=== PATIENT | female | born 1990 | race Caucasian/White ===

== ENCOUNTER 2017-02-06 13:01 | Emergency (ER) | payer OTHER, SELFPAY ==
[~2017-02-06 13:01] MED LIST: Lidocaine 1% 20 ML MDV ONE
[2017-02-06 13:41] LABS: Pregnancy Test - Urine (BHCG) Negative (Negative); Pregu Control Background? CLEAR/WHITE (CLR/WHITE); Pregu Control Bar Appear? YES (CONTROL BAR)
[2017-02-06] MEDS ORDERED: Ketorolac Tromethamine 60 MG/2 ML VIAL ONE (13:50)
[2017-02-06] MEDS ORDERED: Ondansetron ODT 4 MG TAB ONE (13:50)
[2017-02-06 13:56] LABS: Bacteria/HPF 1+ HPF (None Seen); Bilirubin Negative (Negative); Blood, Urine Negative (Negative); Clarity Hazy (Clear); Glucose, Urine (Dipstick) Negative (Negative); Leukocyte Moderate (Negative); Nitrite Negative (Negative); Protein, Urine (Dipstick) Negative (Neg-Trace); RBC/HPF 0-3 HPF (0-3); Urobilinogen 0.2 mg/dL (0.2-1.0); pH, Urine 5.5 (5.0-9.0)
[2017-02-06] MEDS ORDERED: cefTRIAXone\\ROCEPHIN 1 GM VIAL ONE (14:03)
[2017-02-06] MEDS ORDERED: Promethazine HCl 25 MG/ML VIAL ONE (14:03)
== END 2017-02-06 14:25 | disposition home or self-care (01) ==
LOC: MADERS 13:01
DX: N39.0 Urinary tract infection, site not specified (principal); J45.909 Unspecified asthma, uncomplicated; F32.9 Major depressive disorder, single episode, unspecified
CPT/HCPCS: 81001; 81025; 96372; J0696; J1885; J2001; J2550; Q0162

== ENCOUNTER 2017-03-31 23:09 | Emergency (ER) | payer OTHER ==
[~2017-03-31 23:09] MED LIST changes: -Lidocaine 1% 20 ML MDV ONE; +Sodium Chloride 0.9% 1,000 ML BAG ONE; +Sodium Chloride 0.9% 100 ML BAG ONE
[2017-03-31] MEDS ORDERED: Morphine Sulfate 2 MG/ML SYRINGE ONE (23:59)
[2017-03-31] MEDS ORDERED: diphenhydrAMINE HCl 50 MG/ML 1 ML VIAL ONE (23:59)
[2017-04-01] MEDS ORDERED: Metoclopramide HCl 10 MG/2 ML VIAL ONE (00:14)
[2017-04-01 00:28] LABS: Bilirubin Negative (Negative); Blood, Urine Trace (Negative); Glucose, Urine (Dipstick) Negative (Negative); Leukocyte Trace (Negative); Nitrite Negative (Negative); Protein, Urine (Dipstick) 100 mg/dL (Neg-Trace); Specific Gravity, Urine 1.025 (1.005-1.030); Urobilinogen 0.2 mg/dL (0.2-1.0)
[2017-04-01 00:29] LABS: Clarity Hazy (Clear)
[2017-04-01 00:48] LABS: ALT (SGPT) 28 U/L (8-55); AST (SGOT) 23 U/L (5-34); Albumin 4.5 g/dL (3.5-5.0); Alkaline Phosphatase 71 U/L (40-150); Anion Gap 17 mmol/L (10-20); BUN (Urea Nitrogen) 7 mg/dL (7.0-18.7); Bilirubin, Total 0.4 mg/dL (0.2-1.2); Calc. Creatinine Clearance 0 mL/min (70-130); Calcium 9.3 mg/dL (7.8-10.44); Carbon Dioxide 24 mmol/L (22-29); Chloride 100 mmol/L (98-107); Estimated GFR-MDRD Greater than 90; Globulin 3.4 g/dL (2.4-3.5); Glucose 172 mg/dL (70-105); Lipase 11 U/L (8-78); Potassium 3.1 mmol/L (3.5-5.1); Protein, Total 7.9 g/dL (6.0-8.3); Sodium 138 mmol/L (136-145)
[2017-04-01 00:48] LABS: Pregnancy Test - Urine (BHCG) Negative (Negative); Pregu Control Background? CLEAR/WHITE (CLR/WHITE); Pregu Control Bar Appear? YES (CONTROL BAR); Specific Gravity 1.025 (1.002-1.036)
[2017-04-01 00:49] LABS: Amphetamine Not Detected (NotDetected); Bacteria/HPF 3+ HPF (None Seen); Barbiturates Screen Not Detected (NotDetected); Benzodiazepine Screen Detected (NotDetected); Cocaine Metabolite Screen Not Detected (NotDetected); Medtox Control Line Valid? VALID (VALID); Methadone Not Detected (NotDetected); Methamphetamine Not Detected (NotDetected); Opiate Screen Not Detected (NotDetected); Oxycodone Screen Not Detected (NotDetected); Phencyclidine (PCP) Not Detected (NotDetected); Renal Epithelial 0-3 HPF (0-3); THC/Cannabinoid Screen Not Detected (NotDetected); Transitional Epithelial 0-3 HPF (0-3); Tricyclic Screen Not Detected (NotDetected); WBC/HPF 21-50 HPF (0-3); Yeast-All Forms Rare HPF (None Seen)
[2017-04-01 01:19] LABS: #Basophils 0.1 thou/uL (0.0-0.2); #Neutrophils 16.3 thou/uL (1.40-6.50); %Basophils 0.6 % (0.0-1.0); %Eosinophils 0.1 % (0.0-10.0); %Lymphocytes 5.6 % (21.0-51.0); %Monocytes 5.4 % (0.0-10.0); %Neutrophils 88.3 % (42.0-75.0); Hemoglobin 14.1 g/dL (12.0-16.0); Mean Corpuscular HGB CONC 33.1 g/dL (32.0-36.0); Mean Corpuscular Hemoglobin 29.3 pg (27.0-31.0); Mean Corpuscular Volume 88.6 fl (81.0-99.0); Mean Platelet Volume 8.8 fL (7.4-10.4); Platelet Count 317 thou/uL (130-400); RBC Distribution Width 11.9 % (11.5-14.5); Red Blood Cell (RBC) Count 4.81 mill/uL (4.20-5.40); White Blood Cell (WBC) Count 18.5 thou/uL (4.8-10.8)
[2017-04-01] MEDS ORDERED: cefTRIAXone\\ROCEPHIN 1 GM VIAL ONE (01:35)
--- NOTE | 2017-04-01 09:43 | CT ---
PRELIMINARY REPORT/[facility]/EMERGENCY AFTER HOURS PROCEDURE: EXAM: CT Abdomen and Pelvis Without Intravenous Contrast EXAM DATE/TIME: 04/01/2017 12:37 AM CLINICAL HISTORY: 26 years old, female; Pain; Abdominal pain; Localized; Right; Patient HX: Pt has nausea and vomiting . HX of stones. Pain on rt side. TECHNIQUE: Axial computed tomography images of the abdomen and pelvis without intravenous contrast. All CT scan s at this facility use one or more dose reduction techniques, viz.: automated exposure control; ma/k V adjustment per patient size (including targeted exams where dose is matched to indication; i.e. he ad); or iterative reconstruction technique. COMPARISON: No relevant prior studies available. FINDINGS: Lower thorax: Minimal right pleural effusion. ABDOMEN: Liver: Unremarkable. Gallbladder and bile ducts: Gallbladder not identified - surgical clips present in fossa. No ductal dilation. Pancreas: Unremarkable. No ductal dilation. Spleen: Unremarkable. No splenomegaly. Adrenals: Unremarkable. No mass. Kidneys and ureters: Multifocal scarring bilateral kidneys. Rounded 1-3 mm stones bilateral kidneys. No evidence of stones within the ureters or bladder. No hydronephrosis. Stomach and bowel: Unremarkable. No obstruction. No mucosal thickening. Appendix: Suture along the cecum- suspect appendectomy. PELVIS: Bladder: See above. Reproductive: Pelvic surgical clips. Uterus appears within normal limits. ABDOMEN and PELVIS: Intraperitoneal space: Unremarkable. No free air. No significant fluid collection. Bones/joints: No acute fracture. No dislocation. Soft tissues: Unremarkable. Vasculature: Unremarkable. No abdominal aortic aneurysm. Lymph nodes: Unremarkable. No enlarged lymph nodes. IMPRESSION: 1. Bilateral renal nonobstructive stones, scarring bilateral kidneys. No evidence of obstructive uro isabell or obstructive nephropathy. 2. Minimal right pleural effusion. Thank you for allowing us to participate in the care of your patient. Dictated and Authenticated by: Quan Sinclair MD 04/01/2017 1:30 AM Central Time ([place] \[place]\ [place]) FINAL REPORT CT ABDOMEN AND PELVIS WITHOUT CONTRAST: There are nonobstructing calculi in the upper collecting structures of both kidneys. No ureteral ca lculus or obstructive process seen. No hydronephrosis. I am in agreement with the preliminary repo rt. POS: [facility]
== END 2017-04-01 02:10 | disposition short-term general hospital (02) ==
LOC: MADERS 23:09
DX: N12 Tubulo-interstitial nephritis, not specified as acute or chronic (principal); E87.6 Hypokalemia; M10.9 Gout, unspecified; J45.909 Unspecified asthma, uncomplicated; F32.9 Major depressive disorder, single episode, unspecified; F41.9 Anxiety disorder, unspecified; Z79.899 Other long term (current) drug therapy
CPT/HCPCS: 36415; 74176; 80053; 80306; 81003; 81015; 81025; 83690; 85025; 87040; 87086; 94760; 96365; 96368; 96375; J0696; J1200; J2270; J2765; J7050

== ENCOUNTER 2017-05-04 02:33 | Emergency (ER) | payer OTHER | END 2017-05-04 03:15 | disposition home or self-care (01) | LOC: MADERS 02:33 | DX: R33.9 Retention of urine, unspecified (principal); N39.0 Urinary tract infection, site not specified; J45.909 Unspecified asthma, uncomplicated; F41.9 Anxiety disorder, unspecified; F32.9 Major depressive disorder, single episode, unspecified | CPT/HCPCS: 51701 ==

== ENCOUNTER 2017-05-04 11:41 | Emergency (ER) | payer OTHER ==
[2017-05-04 12:49] LABS: #Eosinphils 0.2 thou/uL (0.0-0.7); #Monocytes 1.1 thou/uL (0.11-0.59); #Neutrophils 6.8 thou/uL (1.40-6.50); %Basophils 0.5 % (0.0-1.0); %Eosinophils 1.5 % (0.0-10.0); %Lymphocytes 19.7 % (21.0-51.0); %Monocytes 10.4 % (0.0-10.0); %Neutrophils 67.9 % (42.0-75.0); Hemoglobin 15.1 g/dL (12.0-16.0); Mean Corpuscular HGB CONC 32.7 g/dL (32.0-36.0); Mean Corpuscular Hemoglobin 29.4 pg (27.0-31.0); Mean Corpuscular Volume 90.1 fl (81.0-99.0); Mean Platelet Volume 7.5 fL (7.4-10.4); Platelet Count 399 thou/uL (130-400); RBC Distribution Width 12.3 % (11.5-14.5); Red Blood Cell (RBC) Count 5.12 mill/uL (4.20-5.40); White Blood Cell (WBC) Count 10.1 thou/uL (4.8-10.8)
[2017-05-04 13:09] LABS: ALT (SGPT) 19 U/L (8-55); AST (SGOT) 19 U/L (5-34); Albumin 4.6 g/dL (3.5-5.0); Alkaline Phosphatase 71 U/L (40-150); Anion Gap 14 mmol/L (10-20); BUN (Urea Nitrogen) 12 mg/dL (7.0-18.7); Bilirubin, Total 0.8 mg/dL (0.2-1.2); Calc. Creatinine Clearance 0 mL/min (70-130); Calcium 9.5 mg/dL (7.8-10.44); Carbon Dioxide 24 mmol/L (22-29); Chloride 105 mmol/L (98-107); Estimated GFR-MDRD 80; Globulin 3.7 g/dL (2.4-3.5); Glucose 83 mg/dL (70-105); Potassium 3.8 mmol/L (3.5-5.1); Protein, Total 8.3 g/dL (6.0-8.3); Sodium 139 mmol/L (136-145)
== END 2017-05-04 13:15 | disposition home or self-care (01) ==
LOC: MADERS 11:41
DX: R33.9 Retention of urine, unspecified (principal); M10.9 Gout, unspecified; J45.909 Unspecified asthma, uncomplicated; F32.9 Major depressive disorder, single episode, unspecified; Z79.899 Other long term (current) drug therapy
CPT/HCPCS: 36415; 51702; 80053; 85025; 99283

== ENCOUNTER 2017-05-09 13:23 | Emergency (ER) | payer OTHER ==
[2017-05-09 14:39] LABS: Bilirubin Moderate (Negative); Blood, Urine Large (Negative); Clarity Cloudy (Clear); Glucose, Urine (Dipstick) 100 mg/dL (Negative); Leukocyte Large (Negative); Nitrite Positive (Negative); Protein, Urine (Dipstick) > or equal to 300 mg/dL (Neg-Trace); Specific Gravity, Urine 1.025 (1.005-1.030)
[2017-05-09 14:44] LABS: Bacteria/HPF 1+ HPF (None Seen); RBC/HPF GREATER THAN 50-TNTC HPF (0-3)
== END 2017-05-09 14:28 | disposition home or self-care (01) ==
LOC: MADERS 13:23
DX: N99.89 Other postprocedural complications and disorders of genitourinary system (principal); R33.8 Other retention of urine; M10.9 Gout, unspecified; J45.909 Unspecified asthma, uncomplicated; Z87.442 Personal history of urinary calculi; F32.9 Major depressive disorder, single episode, unspecified; F41.9 Anxiety disorder, unspecified; Z79.899 Other long term (current) drug therapy
CPT/HCPCS: 51702; 81003; 81015

== ENCOUNTER 2017-05-12 16:27 | Emergency (ER) | payer OTHER ==
[2017-05-12 17:24] LABS: Bilirubin Negative (Negative); Blood, Urine Large (Negative); Clarity Cloudy (Clear); Glucose, Urine (Dipstick) Negative (Negative); Leukocyte Negative (Negative); Nitrite Negative (Negative); Protein, Urine (Dipstick) 100 mg/dL (Neg-Trace); Urobilinogen 0.2 mg/dL (0.2-1.0); pH, Urine 5.5 (5.0-9.0)
[2017-05-12 17:26] LABS: RBC/HPF GREATER THAN 50-TNTC HPF (0-3); WBC/HPF 0-3 HPF (0-3)
[2017-05-12 17:27] LABS: Bacteria/HPF Rare-Few HPF (None Seen)
== END 2017-05-12 18:20 | disposition home or self-care (01) ==
LOC: MADERS 16:27
DX: R33.9 Retention of urine, unspecified (principal); F41.9 Anxiety disorder, unspecified; F31.9 Bipolar disorder, unspecified; J45.909 Unspecified asthma, uncomplicated; M10.9 Gout, unspecified; Z79.899 Other long term (current) drug therapy
CPT/HCPCS: 51702; 81003; 81015

== ENCOUNTER 2017-07-28 11:14 | Outpatient (CLI) | payer OTHER ==
--- NOTE | 2017-07-28 12:29 | RAD ---
LUMBAR SPINE 3 VIEWS: HISTORY: Lumbago with some sciatica. COMPARISON: None. FINDINGS: Mild levoscoliosis. Five sna-gil-haiehux lumbar-type vertebrae. No lumbosacral transitional vertebr ae. No acute fracture. No listhesis. There are clips within the pelvis. IMPRESSION: Mild levoscoliosis. No other abnormality. POS: [facility]
--- NOTE | 2017-07-28 12:32 | RAD ---
RIGHT HIP TWO VIEWS: History: Pain. Comparison: None. FINDINGS: No acute fracture. No malalignment. Subtle fibro-osseous cyst of the right femoral neck/head junction . Normal acetabular cartilage. There appears to be a bone island in the left pubic body. IMPRESSION: Unremarkable exam. POS: [facility]
== END 2017-07-28 11:15 | disposition home or self-care (01) ==
LOC: MADLABBHPM 11:14
PROVIDERS: ATTEND Family Medicine
DX: M25.551 Pain in right hip (principal); M54.42 Lumbago with sciatica, left side; M54.41 Lumbago with sciatica, right side; M41.86 Other forms of scoliosis, lumbar region
CPT/HCPCS: 72100

== ENCOUNTER 2017-08-13 14:17 | Emergency (ER) | payer OTHER ==
[2017-08-13 15:10] LABS: Bilirubin Negative (Negative); Blood, Urine Small (Negative); Glucose, Urine (Dipstick) Negative (Negative); Leukocyte Small (Negative); Nitrite Negative (Negative); Protein, Urine (Dipstick) Negative (Neg-Trace); Urobilinogen 0.2 mg/dL (0.2-1.0); pH, Urine 6.5 (5.0-9.0)
[2017-08-13 15:20] LABS: Clarity Hazy (Clear)
[2017-08-13 15:23] LABS: Bacteria/HPF 4+ HPF (None Seen)
[2017-08-13 16:13] LABS: #Basophils 0.2 thou/uL (0.0-0.2); #Eosinphils 0.6 thou/uL (0.0-0.7); #Lymphocytes 1.8 thou/uL (1.20-3.40); #Monocytes 1.1 thou/uL (0.11-0.59); #Neutrophils 7.8 thou/uL (1.40-6.50); %Basophils 1.4 % (0.0-1.0); %Eosinophils 5.6 % (0.0-10.0); %Lymphocytes 15.7 % (21.0-51.0); %Monocytes 9.2 % (0.0-10.0); Mean Corpuscular HGB CONC 33.6 g/dL (32.0-36.0); Mean Corpuscular Hemoglobin 30.4 pg (27.0-31.0); Mean Corpuscular Volume 90.5 fl (81.0-99.0); Mean Platelet Volume 7.3 fL (7.4-10.4); Platelet Count 448 thou/uL (130-400); RBC Distribution Width 11.6 % (11.5-14.5); Red Blood Cell (RBC) Count 4.59 mill/uL (4.20-5.40); White Blood Cell (WBC) Count 11.5 thou/uL (4.8-10.8)
[2017-08-13 16:26] LABS: Acetaminophen Less than 6.0 mcg/mL (10.0-30.0); Alcohol Less than 10 mg/dL (Less than 10); Salicylate Less than 8.0 mg/dL (15.0-30.0)
[2017-08-13 16:28] LABS: ALT (SGPT) 15 U/L (8-55); AST (SGOT) 19 U/L (5-34); Albumin 4.3 g/dL (3.5-5.0); Alcohol Less than 10 mg/dL (Less than 10); Alkaline Phosphatase 70 U/L (40-150); Anion Gap 15 mmol/L (10-20); BUN (Urea Nitrogen) 8 mg/dL (7.0-18.7); Bilirubin, Total 0.7 mg/dL (0.2-1.2); Calc. Creatinine Clearance 0 mL/min (70-130); Calcium 9.1 mg/dL (7.8-10.44); Carbon Dioxide 25 mmol/L (22-29); Chloride 105 mmol/L (98-107); Estimated GFR-MDRD Greater than 90; Globulin 3.9 g/dL (2.4-3.5); Glucose 90 mg/dL (70-105); Protein, Total 8.2 g/dL (6.0-8.3); Sodium 141 mmol/L (136-145)
[2017-08-13 16:30] LABS: Amphetamine Not Detected (NotDetected); Barbiturates Screen Not Detected (NotDetected); Benzodiazepine Screen Detected (NotDetected); Cocaine Metabolite Screen Not Detected (NotDetected); Medtox Control Line Valid? VALID (VALID); Methadone Not Detected (NotDetected); Methamphetamine Not Detected (NotDetected); Opiate Screen Not Detected (NotDetected); Oxycodone Screen Not Detected (NotDetected); Phencyclidine (PCP) Not Detected (NotDetected); THC/Cannabinoid Screen Not Detected (NotDetected); Tricyclic Screen Not Detected (NotDetected)
[2017-08-13] MEDS ORDERED: cefTRIAXone\\ROCEPHIN 1 GM VIAL ONE (17:09)
[2017-08-13] MEDS ORDERED: Lidocaine 1% 20 ML MDV ONE (17:09)
== END 2017-08-13 17:50 | disposition home or self-care (01) ==
LOC: MADERS 14:17
DX: R45.851 Suicidal ideations (principal); F60.3 Borderline personality disorder; J45.909 Unspecified asthma, uncomplicated; F41.9 Anxiety disorder, unspecified; F43.10 Post-traumatic stress disorder, unspecified; F31.9 Bipolar disorder, unspecified; Z79.899 Other long term (current) drug therapy
CPT/HCPCS: 36415; 80053; 80306; 80307; 81003; 81015; 85025; 87077; 87086; 87186; 96372; J0696; J2001

== ENCOUNTER 2017-08-21 14:27 | Outpatient (CLI) | payer OTHER | END 2017-08-21 14:28 | disposition home or self-care (01) | LOC: MADLAB 14:27 → MADLABBHPM 14:28 | PROVIDERS: ATTEND Family Medicine | DX: N39.0 Urinary tract infection, site not specified (principal) | CPT/HCPCS: 36415; 87086 ==

== ENCOUNTER 2017-08-25 03:07 | Emergency (ER) | payer OTHER ==
[2017-08-25 04:01] LABS: Bilirubin Negative (Negative); Blood, Urine Negative (Negative); Glucose, Urine (Dipstick) Negative (Negative); Leukocyte Moderate (Negative); Nitrite Negative (Negative); Protein, Urine (Dipstick) Negative (Neg-Trace); Urobilinogen 0.2 mg/dL (0.2-1.0)
[2017-08-25 04:04] LABS: Pregnancy Test - Urine (BHCG) Negative (Negative); Pregu Control Background? CLEAR/WHITE (CLR/WHITE); Pregu Control Bar Appear? YES (CONTROL BAR)
[2017-08-25] MEDS ORDERED: Fentanyl 100 MCG/2 ML VIAL ONE (04:04)
[2017-08-25] MEDS ORDERED: Promethazine HCl 25 MG/ML VIAL ONE (04:04)
[2017-08-25 04:05] LABS: Clarity Hazy (Clear)
[2017-08-25 04:07] LABS: Bacteria/HPF 1+ HPF (None Seen)
[2017-08-25 04:38] LABS: #Basophils 0.1 thou/uL (0.0-0.2); #Lymphocytes 1.3 thou/uL (1.20-3.40); #Monocytes 0.9 thou/uL (0.11-0.59); #Neutrophils 12.4 thou/uL (1.40-6.50); %Basophils 0.6 % (0.0-1.0); %Eosinophils 0.1 % (0.0-10.0); %Lymphocytes 8.7 % (21.0-51.0); %Monocytes 6.2 % (0.0-10.0); %Neutrophils 84.5 % (42.0-75.0); Hemoglobin 12.1 g/dL (12.0-16.0); Mean Corpuscular HGB CONC 33.3 g/dL (32.0-36.0); Mean Corpuscular Hemoglobin 29.5 pg (27.0-31.0); Mean Corpuscular Volume 88.8 fl (81.0-99.0); Mean Platelet Volume 6.4 fL (7.4-10.4); Platelet Count 357 thou/uL (130-400); RBC Distribution Width 11.5 % (11.5-14.5); Red Blood Cell (RBC) Count 4.09 mill/uL (4.20-5.40); White Blood Cell (WBC) Count 14.7 thou/uL (4.8-10.8)
[2017-08-25 04:56] LABS: ALT (SGPT) 47 U/L (8-55); AST (SGOT) 35 U/L (5-34); Alkaline Phosphatase 59 U/L (40-150); Anion Gap 16 mmol/L (10-20); BUN (Urea Nitrogen) 7 mg/dL (7.0-18.7); Bilirubin, Total 0.7 mg/dL (0.2-1.2); Calc. Creatinine Clearance 0 mL/min (70-130); Calcium 8.8 mg/dL (7.8-10.44); Carbon Dioxide 23 mmol/L (22-29); Chloride 104 mmol/L (98-107); Estimated GFR-MDRD Greater than 90; Globulin 3.2 g/dL (2.4-3.5); Glucose 124 mg/dL (70-105); Lipase 14 U/L (8-78); Potassium 3.5 mmol/L (3.5-5.1); Protein, Total 7.2 g/dL (6.0-8.3); Sodium 139 mmol/L (136-145)
[2017-08-25] MEDS ORDERED: Sodium Chloride 0.9% 1,000 ML BAG ONE (07:11)
[2017-08-25] MEDS ORDERED: Sodium Chloride 0.9% 100 ML BAG ONE (07:11)
== END 2017-08-25 04:38 | disposition short-term general hospital (02) ==
LOC: MADERS 03:07
DX: N12 Tubulo-interstitial nephritis, not specified as acute or chronic (principal); A09 Infectious gastroenteritis and colitis, unspecified; F31.9 Bipolar disorder, unspecified; M10.9 Gout, unspecified; J45.909 Unspecified asthma, uncomplicated; K58.9 Irritable bowel syndrome, unspecified; F41.9 Anxiety disorder, unspecified; F43.10 Post-traumatic stress disorder, unspecified
CPT/HCPCS: 36415; 51701; 80053; 81003; 81015; 81025; 83690; 85025; 87040; 87086; 96374; 96375; J2550; J3010; J7050

== ENCOUNTER 2017-11-08 18:34 | Emergency (ER) | payer OTHER ==
[~2017-11-08 18:34] MED LIST changes: -Sodium Chloride 0.9% 100 ML BAG ONE
[2017-11-08] MEDS ORDERED: Promethazine HCl 25 MG/ML VIAL ONE ×3 (19:25→21:19)
[2017-11-08 19:27] LABS: Bilirubin Negative (Negative); Blood, Urine Negative (Negative); Clarity Cloudy (Clear); Glucose, Urine (Dipstick) Negative (Negative); Leukocyte Negative (Negative); Nitrite Negative (Negative); Protein, Urine (Dipstick) Negative (Neg-Trace); Urobilinogen 0.2 mg/dL (0.2-1.0); pH, Urine 7.5 (5.0-9.0)
[2017-11-08 19:33] LABS: Bacteria/HPF 1+ HPF (None Seen); RBC/HPF 0-3 HPF (0-3); Squamous Epithelial 0-3 HPF (0-3); WBC/HPF None Seen HPF (0-3)
[2017-11-08 19:34] LABS: Crystals/HPF 3+ AMORPH PHOS HPF (Negative)
[2017-11-08 19:49] LABS: #Basophils 0.1 thou/uL (0.0-0.2); #Eosinphils 0.1 thou/uL (0.0-0.7); #Lymphocytes 2.2 thou/uL (1.20-3.40); %Eosinophils 0.4 % (0.0-10.0); %Lymphocytes 14.6 % (21.0-51.0); %Monocytes 6.2 % (0.0-10.0); %Neutrophils 77.8 % (42.0-75.0); Hemoglobin 14.2 g/dL (12.0-16.0); Mean Corpuscular HGB CONC 34.3 g/dL (32.0-36.0); Mean Corpuscular Volume 81.4 fl (81.0-99.0); Mean Platelet Volume 6.5 fL (7.4-10.4); Platelet Count 378 thou/uL (130-400); RBC Distribution Width 12.6 % (11.5-14.5); Red Blood Cell (RBC) Count 5.09 mill/uL (4.20-5.40); White Blood Cell (WBC) Count 15.4 thou/uL (4.8-10.8)
[2017-11-08] MEDS ORDERED: diphenhydrAMINE 50 MG/ML VIAL ONE (19:53)
[2017-11-08] MEDS ORDERED: Fentanyl 100 MCG/2 ML VIAL ONE ×2 (19:53→21:19)
[2017-11-08 19:59] LABS: BHCG - Serum Negative (NEGATIVE); Pregs Control Background? CLEAR/WHITE (CLR/WHITE); Pregs Control Bar Appear? YES (CONTROL BAR)
[2017-11-08 20:03] LABS: ALT (SGPT) 41 U/L (8-55); AST (SGOT) 28 U/L (5-34); Albumin 4.4 g/dL (3.5-5.0); Alkaline Phosphatase 71 U/L (40-150); Anion Gap 18 mmol/L (10-20); BUN (Urea Nitrogen) 6 mg/dL (7.0-18.7); Bilirubin, Total 0.8 mg/dL (0.2-1.2); Calc. Creatinine Clearance 0 mL/min (70-130); Calcium 9.7 mg/dL (7.8-10.44); Carbon Dioxide 25 mmol/L (22-29); Chloride 102 mmol/L (98-107); Estimated GFR-MDRD 89; Globulin 3.3 g/dL (2.4-3.5); Glucose 115 mg/dL (70-105); Potassium 3.3 mmol/L (3.5-5.1); Protein, Total 7.7 g/dL (6.0-8.3); Sodium 142 mmol/L (136-145)
--- NOTE | 2017-11-08 20:06 | CT ---
NONCONTRAST CT ABDOMEN AND PELVIS: 11/08/17 HISTORY: Right sided abdominal pain. COMPARISON: 08/25/17. FINDINGS: Limited visualized lung bases are clear aside from minimal atelectasis versus scarring at the left leah ng base. The dome of the liver is excluded from view on this examination, but the remainder of the visualized liver demonstrates a grossly normal nonenhanced CT appearance. Post cholecystectomy changes are noted . Again noted is scarring involving the kidneys bilaterally with hypodense renal lesions again seen wit h a few lesions containing calcifications in the wall of the cystic lesions. No renal or ureteral oswaldo culi are seen bilaterally, and there is no hydronephrosis. The spleen, pancreas, bilateral adrenal glands, and urinary bladder demonstrate a grossly normal none nhanced CT appearance. The uterus is not visualized likely due to hysterectomy. Surgical clips are seen in the pelvis. There has been no other interval change when compared to the prior contrasted exam. Loops of small tabitha wel are normal in caliber. IMPRESSION: 1. No renal or ureteral calculi are seen, and there is no hydronephrosis. 2. Scarring in the superior pole of each kidney with stable hypodense renal lesions again seen i n the superior pole of each kidney 3. Post cholecystectomy changes.. 4. Hysterectomy. POS: [facility]
--- NOTE | 2017-11-08 20:17 | RAD ---
FRONTAL RADIOGRAPH CHEST 11/08/17 HISTORY: Right sided pain. FINDINGS: There is no pneumothorax, pleural fluid, focal consolidation, or alveolar edema. There is prominence of the cardiac silhouette which could signify magnification and/or enlargement. IMPRESSION: No acute findings. POS: [facility]
[2017-11-08 20:22] LABS: Lipase 15 U/L (8-78)
[2017-11-08] MEDS ORDERED: Haloperidol Lactate 5 MG/ML VIAL ONE (22:09)
== END 2017-11-08 23:55 | disposition home or self-care (01) ==
LOC: MADERS 18:34
DX: R10.11 Right upper quadrant pain (principal); R11.2 Nausea with vomiting, unspecified; M10.9 Gout, unspecified; J45.909 Unspecified asthma, uncomplicated; K58.9 Irritable bowel syndrome, unspecified; F31.9 Bipolar disorder, unspecified; F41.9 Anxiety disorder, unspecified; F43.10 Post-traumatic stress disorder, unspecified; Z79.899 Other long term (current) drug therapy
CPT/HCPCS: 71045; 74176; 80053; 81001; 82150; 83605; 83690; 84550; 84703; 85025; 87086; 96361; 96374; 96375; 96376; J1200; J1630; J2550; J3010; J7050

== ENCOUNTER 2018-01-01 16:15 | Emergency (ER) | payer OTHER ==
[~2018-01-01 16:15] MED LIST changes: +Iopamidol 370 76% 100 ML VIAL ONE
[2018-01-01 16:49] LABS: Bilirubin Negative (Negative); Blood, Urine Trace (Negative); Clarity Slightly Cloudy (Clear); Glucose, Urine (Dipstick) Negative (Negative); Leukocyte Negative (Negative); Nitrite Negative (Negative); Protein, Urine (Dipstick) Negative (Neg-Trace); Urobilinogen 0.2 mg/dL (0.2-1.0)
[2018-01-01 17:04] LABS: Bacteria/HPF 2+ HPF (None Seen); RBC/HPF 0-3 HPF (0-3); WBC/HPF 0-3 HPF (0-3)
[2018-01-01 17:08] LABS: #Basophils 0.1 thou/uL (0.0-0.2); #Eosinphils 0.6 thou/uL (0.0-0.7); #Lymphocytes 2.3 thou/uL (1.20-3.40); #Monocytes 1.3 thou/uL (0.11-0.59); #Neutrophils 9.1 thou/uL (1.40-6.50); %Basophils 0.9 % (0.0-1.0); %Eosinophils 4.6 % (0.0-10.0); %Monocytes 9.6 % (0.0-10.0); %Neutrophils 67.9 % (42.0-75.0); Mean Corpuscular HGB CONC 31.9 g/dL (32.0-36.0); Mean Corpuscular Hemoglobin 26.3 pg (27.0-31.0); Mean Corpuscular Volume 82.5 fl (81.0-99.0); Mean Platelet Volume 6.8 fL (7.4-10.4); Platelet Count 402 thou/uL (130-400); RBC Distribution Width 14.4 % (11.5-14.5); Red Blood Cell (RBC) Count 5.31 mill/uL (4.20-5.40); White Blood Cell (WBC) Count 13.5 thou/uL (4.8-10.8)
[2018-01-01 17:23] LABS: ALT (SGPT) 59 U/L (8-55); AST (SGOT) 47 U/L (5-34); Albumin 4.4 g/dL (3.5-5.0); Alkaline Phosphatase 73 U/L (40-150); Anion Gap 16 mmol/L (10-20); BUN (Urea Nitrogen) 9 mg/dL (7.0-18.7); Bilirubin, Total 1.1 mg/dL (0.2-1.2); Calc. Creatinine Clearance 0 mL/min (70-130); Calcium 9.3 mg/dL (7.8-10.44); Carbon Dioxide 24 mmol/L (22-29); Chloride 104 mmol/L (98-107); Estimated GFR-MDRD 84; Globulin 3.5 g/dL (2.4-3.5); Glucose 103 mg/dL (70-105); Lipase 33 U/L (8-78); Potassium 3.7 mmol/L (3.5-5.1); Protein, Total 7.9 g/dL (6.0-8.3); Sodium 140 mmol/L (136-145)
[2018-01-01] MEDS ORDERED: Pantoprazole 40 MG VIAL ONE (18:39)
[2018-01-01] MEDS ORDERED: Mag-Al Plus 1200 MG/1200 MG/120 MG/30 ML UDCUP ONE (18:50)
--- NOTE | 2018-01-01 19:38 | CT ---
CT ABDOMEN AND PELVIS WITH IV CONTRAST: 01/01/18 Multiple axial tomograms obtained through the abdomen and pelvis with IV enhancement. Oral contrast w as not given. INDICATIONS: Abdominal pain. Right upper quadrant pain with nausea and vomiting. Elevated white count. History of renal calculi and lithotripsy. Comparison is made to a recent noncontrast CT dated 03/10/18. FINDINGS: Lung bases are clear. The liver, spleen, pancreas unremarkable. Stomach and duodenum unremarkable. Adrenal glands appear normal. Both kidneys show cortical scarring in both upper poles. Tiny calcification within an area of low att enuation of left upper pole of the left kidney is stable from the recent study. Areas of low density within the upper lobe scarring bilaterally appears stable. There is no evidence of hydronephrosis. No evidence of ureteral calculus or obstruction. The urinary bladder is unremarkable. Small bowel loops appear normal. Patient is post cholecystectomy. The appendix is not identified. The colon is mostly contracted and appears unremarkable. No adenopathy or mass identified. IMPRESSION: Both kidneys show scarring in the upper poles bilaterally with low density areas which appear stable from recent exam. No evidence of hydronephrosis or ureteral calculus. POS: [facility]
== END 2018-01-01 19:26 | disposition home or self-care (01) ==
LOC: MADERS 16:15
DX: K29.00 Acute gastritis without bleeding (principal); J45.909 Unspecified asthma, uncomplicated; F31.9 Bipolar disorder, unspecified; Z79.899 Other long term (current) drug therapy
CPT/HCPCS: 36415; 74177; 80053; 81003; 81015; 83690; 85025; 96361; 96374; C9113; J7050

== ENCOUNTER 2018-01-07 23:47 | Emergency (ER) | payer OTHER ==
[~2018-01-07 23:47] MED LIST changes: +Iopamidol 370 76% 125 ML VIAL FS ONE; -Sodium Chloride 0.9% 1,000 ML BAG ONE; +Sodium Chloride 0.9% 500 ML BAG ONE
[2018-01-08 00:40] LABS: INR-International Normal Ratio 0.9; PTT 27.4 SEC (22.9-36.1); Prothrombin Time 12.7 SEC (12.0-14.7)
[2018-01-08 00:49] LABS: ALT (SGPT) 38 U/L (8-55); AST (SGOT) 38 U/L (5-34); Alkaline Phosphatase 73 U/L (40-150); Anion Gap 15 mmol/L (10-20); BUN (Urea Nitrogen) 9 mg/dL (7.0-18.7); Bilirubin, Total 0.5 mg/dL (0.2-1.2); Calc. Creatinine Clearance 0 mL/min (70-130); Calcium 8.9 mg/dL (7.8-10.44); Carbon Dioxide 23 mmol/L (22-29); Chloride 108 mmol/L (98-107); Estimated GFR-MDRD 89; Globulin 2.9 g/dL (2.4-3.5); Glucose 108 mg/dL (70-105); Potassium 3.5 mmol/L (3.5-5.1); Protein, Total 6.9 g/dL (6.0-8.3); Sodium 142 mmol/L (136-145)
[2018-01-08 00:50] LABS: CKMB 0.6 ng/mL (0-6.6); Troponin I Less than 0.010 ng/mL (< 0.028)
[2018-01-08 00:58] LABS: #Basophils 0.1 thou/uL (0.0-0.2); #Eosinphils 0.7 thou/uL (0.0-0.7); #Lymphocytes 2.4 thou/uL (1.20-3.40); #Monocytes 1.3 thou/uL (0.11-0.59); #Neutrophils 7.4 thou/uL (1.40-6.50); %Basophils 0.9 % (0.0-1.0); %Eosinophils 5.9 % (0.0-10.0); %Lymphocytes 20.1 % (21.0-51.0); %Monocytes 10.9 % (0.0-10.0); %Neutrophils 62.1 % (42.0-75.0); Hemoglobin 12.7 g/dL (12.0-16.0); Mean Corpuscular Hemoglobin 27.1 pg (27.0-31.0); Mean Corpuscular Volume 82.2 fL (78.0-98.0); Mean Platelet Volume 7.1 fL (7.4-10.4); Platelet Count 324 thou/uL (130-400); RBC Distribution Width 14.2 % (11.5-14.5); Red Blood Cell (RBC) Count 4.69 mill/uL (4.20-5.40); White Blood Cell (WBC) Count 11.9 thou/uL (4.8-10.8)
[2018-01-08] MEDS ORDERED: Fentanyl 100 MCG/2 ML VIAL ONE (01:33)
--- NOTE | 2018-01-08 08:47 | CT ---
PRELIMINARY REPORT/[facility]/EMERGENTY AFTER-HOURS PROCEDURE CT Angiography Chest With Intravenous Contrast CLINICAL HISTORY: 27 years old, female; Pain; Chest pain; On breathing; Patient HX: Pt having SOB high d-dimer TECHNIQUE: Axial computed tomographic angiography images of the chest with intravenous contrast using pulmonary embolism protocol. All CT scans at this facility use at least one of these dose optimization techniqu es: automated exposure control; mA and/or kV adjustment per patient size (includes targeted exams where dose is matched to clinical indication); or iterative reconstruction. MIP reconstructed i mages were created and reviewed. CONTRAST: 100 mL of ISOVUE administered intravenously. COMPARISON: CT Chest WO Con 2018-01-08 00:09 FINDINGS: Pulmonary arteries: There is no evidence of peripheral filling defects within the pulmonary arterial circulation to suggest pulmonary embolism although evaluation is somewhat limited by respiratory johanna on artifact. Aorta: The aorta is normal. There is no evidence of aortic dissection, leak, rupture, or other compli cations. Lungs: There is subpleural atelectasis of the dependent portions of the lungs. No mass. Pleural space: Normal. No significant effusion. No pneumothorax. Heart: Normal. No cardiomegaly. No significant pericardial effusion. No evidence of RV dysfunction. Mediastinum: The trachea is normal. Thyroid: The visualized thyroid gland is unremarkable. Bones/joints: No acute fracture. No dislocation. Soft tissues: Normal. Lymph nodes: Normal. No enlarged lymph nodes. IMPRESSION: There is no CT evidence of acute pulmonary embolism on these somewhat limited views with respiratory motion artifact. Thank you for allowing us to participate in the care of your patient. Dictated and Authenticated by: Lowell Muller MD 01/08/2018 2:31 AM Central Time ([place] & [place]) FINAL REPORT EMERGENT AFTER HOURS CT ANGIOGRAM THORAX WITH IV CONTRAST AND 3D RECONSTRUCTIONS: DATE: 01/08/18. HISTORY: Chest pain. Elevated D-dimer. FINDINGS: 1. There is prominent respiratory motion limiting evaluation. 2. No filling defects are seen in the central pulmonary arteries to suggest a pulmonary embolus. Du e to significant respiratory motion and suboptimal timing of the contrast bolus, the segmental and holden bsegmental pulmonary arteries are not well opacified for adequate evaluation of pulmonary emboli. As a result, pulmonary emboli at these levels could not be excluded. 3. Thoracic aorta is normal in caliber without evidence of an aortic dissection. 4. Cholecystectomy. 5. Dependent atelectasis. 6. Findings are in agreement with the preliminary report by [facility]. POS: [facility]
--- NOTE | 2018-01-08 09:07 | CT ---
PRELIMINARY REPORT/[facility]/EMERGENTY AFTER-HOURS PROCEDURE CT Chest Without Intravenous Contrast CLINICAL HISTORY: 27 years old, female; Pain; Chest pain; On breathing; Patient HX: Pt had chest xray done it was abnor mal. Complaining of SOB. Pain is worse TECHNIQUE: Axial computed tomography images of the chest without intravenous contrast. All CT scans at this [facility] use at least one of these dose optimization techniques: automated exposure control; Ma and/or kV adjustment per patient size (includes targeted exams where dose is matched to clinical indication); or iterative reconstruction. COMPARISON: No relevant prior studies available. FINDINGS: Lungs: There is subpleural atelectasis of the dependent portions of the lungs. Pleural space: Normal. No pneumothorax. No significant effusion. Heart: Normal. No cardiomegaly. No significant pericardial effusion. Thyroid: The thyroid gland is normal. Bones/joints: Normal. No acute fracture. No dislocation. Soft tissues: Normal. Vasculature: Normal. No thoracic aortic aneurysm. Lymph nodes: Normal. No enlarged lymph nodes. Gallbladder and bile ducts: There has been a cholecystectomy. IMPRESSION: No acute thoracic pathology. Thank you for allowing us to participate in the care of your patient. Dictated and Authenticated by: Lowell Muller MD 01/08/2018 1:22 AM Central Time ([place] & [place]) CT CHEST WITHOUT CONTRAST: Date: 01/08/18 HISTORY: Pneumomediastinum. Dyspnea. COMPARISON: Chest radiograph of 01/06/18. FINDINGS/IMPRESSION: Findings and impression are concordant with the preliminary report by [facility]. No pneumomediastinum. POS: [facility]
--- NOTE | 2018-01-08 09:12 | CT ---
PRELIMINARY REPORT/[facility]/EMERGENTY AFTER-HOURS PROCEDURE CT Abdomen and Pelvis With Intravenous Contrast CLINICAL HISTORY: 27 years old, female; Pain; Abdominal pain; Other: All over; Patient HX: Pt haveing abdomen pain this was done to follow cta chest TECHNIQUE: Axial computed tomography images of the abdomen and pelvis with intravenous contrast. All CT scans at this facility use at least one of these dose optimization techniques: automated exposure control; mA and/or kV adjustment per patient size (includes targeted exams where dose is matched to clinical ind ication); or iterative reconstruction. CONTRAST: 100 mL of ISOVUE administered intravenously. COMPARISON: No relevant prior studies available. FINDINGS: Lung bases: There is subpleural atelectasis of the dependent portions of the lungs. ABDOMEN: Liver: The liver is within normal limits for this noncontrast study. Gallbladder and bile ducts: There has been a cholecystectomy. No ductal dilation. Pancreas: The pancreas appears normal. No ductal dilation. Spleen: The spleen is normal. Adrenals: The adrenal glands are normal. Kidneys and ureters: There is nonspecific lobulation of the kidneys. Contrast passed freely from the kidneys to the urinary bladder. Stomach and bowel: The stomach is normal. The duodenum is unremarkable. The colon is normal. No obstr uction. No mucosal thickening. PELVIS: Appendix: There has been an appendectomy. Bladder: The bladder is normal. Reproductive: There is a 2.6 cm complex indeterminate cyst in the LEFT ovary, incompletely evaluated with CT. ABDOMEN and PELVIS: Intraperitoneal space: Normal. No free air. No significant fluid collection. Bones/joints: No acute fracture. No dislocation. Soft tissues: Normal. Vasculature: Normal. No abdominal aortic aneurysm. Lymph nodes: Normal. No enlarged lymph nodes. Other findings: There surgical clips in pelvis. IMPRESSION: 1. No acute abdominal pelvic pathology. 2. There is a 2.6 cm complex indeterminate cyst in the LEFT ovary, incompletely evaluated with CT. Thank you for allowing us to participate in the care of your patient. Dictated and Authenticated by: Lowell Muller MD 01/08/2018 2:35 AM Central Time ([place] & [place]) CT ABDOMEN AND PELVIS WITH CONTRAST: Date: 01/08/18 HISTORY: Abdominal pain. COMPARISON: CT abdomen and pelvis dated 01/01/18. FINDINGS: There is contrast in the urinary bladder. There is contrast in the renal collecting systems. Exam is limited due to its delayed acquisition. There is scarring in both upper poles of both kidneys. Prior cholecystectomy. No dilated loops of lar ge or small bowel. There is a fallopian tube closure device in the pelvic cul-de-sac. Aortoiliac contour is normal. No a neurysmal dilatation. No acute inflammatory process in the abdomen or pelvis. IMPRESSION: No acute intra-abdominal abnormality. POS: [facility]
== END 2018-01-08 02:57 | disposition home or self-care (01) ==
LOC: MADERS 23:47
DX: N83.201 Unspecified ovarian cyst, right side (principal); M10.9 Gout, unspecified; J45.909 Unspecified asthma, uncomplicated; F41.9 Anxiety disorder, unspecified; F31.9 Bipolar disorder, unspecified; Z79.899 Other long term (current) drug therapy
CPT/HCPCS: 36415; 71250; 71275; 74177; 80053; 82553; 83880; 84484; 85025; 85379; 85610; 85730; 93005; 96361; 96374; J3010; J7050

== ENCOUNTER 2018-02-09 12:08 | Outpatient (CLI) | payer OTHER ==
[2018-02-09 12:55] LABS: ALT (SGPT) 39 U/L (8-55); AST (SGOT) 34 U/L (5-34); Albumin 4.3 g/dL (3.5-5.0); Alkaline Phosphatase 72 U/L (40-150); Anion Gap 19 mmol/L (10-20); BUN (Urea Nitrogen) 7 mg/dL (7.0-18.7); Bilirubin, Total 0.8 mg/dL (0.2-1.2); Calc. Creatinine Clearance 0 mL/min (70-130); Calcium 9.4 mg/dL (7.8-10.44); Carbon Dioxide 20 mmol/L (22-29); Chloride 104 mmol/L (98-107); Estimated GFR-MDRD 87; Globulin 3.5 g/dL (2.4-3.5); Glucose 91 mg/dL (70-105); Potassium 4.4 mmol/L (3.5-5.1); Protein, Total 7.8 g/dL (6.0-8.3); Sodium 139 mmol/L (136-145)
== END 2018-02-09 12:09 | disposition home or self-care (01) ==
LOC: MADLABBHPM 12:08
PROVIDERS: ATTEND Family Medicine
DX: E87.5 Hyperkalemia (principal)
CPT/HCPCS: 36415; 80053; 93005; 93010

== ENCOUNTER 2018-03-14 14:54 | Emergency (ER) | payer OTHER ==
[~2018-03-14 14:54] MED LIST changes: -Iopamidol 370 76% 100 ML VIAL ONE; -Iopamidol 370 76% 125 ML VIAL FS ONE; +Sodium Chloride 0.9% 1,000 ML BAG ONE; -Sodium Chloride 0.9% 500 ML BAG ONE
[2018-03-14] MEDS ORDERED: Fentanyl 100 MCG/2 ML VIAL ONE ×2 (15:31→17:32)
--- NOTE | 2018-03-14 16:02 | CT ---
CT HEAD WITHOUT CONTRAST" 03/14/18 Multiple axial tomograms obtained through the head without IV enhancement. INDICATIONS: Headache and dizziness. FINDINGS: The ventricles are normal size and position. No evidence of intracranial mass or hemorrhage. No evide nce of edema. Sinuses and mastoids are well aerated. IMPRESSION: No acute abnormality. POS: [facility]
[2018-03-14 16:15] LABS: Bilirubin Negative (Negative); Blood, Urine Negative (Negative); Glucose, Urine (Dipstick) Negative (Negative); Leukocyte Negative (Negative); Nitrite Negative (Negative); Protein, Urine (Dipstick) Negative (Neg-Trace); pH, Urine 6.5 (5.0-9.0)
[2018-03-14 16:16] LABS: Clarity Hazy (Clear)
[2018-03-14 16:17] LABS: #Basophils 0.2 thou/uL (0.0-0.2); #Eosinphils 0.2 thou/uL (0.0-0.7); #Lymphocytes 2.2 thou/uL (1.20-3.40); #Monocytes 1.3 thou/uL (0.11-0.59); #Neutrophils 8.5 thou/uL (1.40-6.50); %Basophils 1.5 % (0.0-1.0); %Eosinophils 1.6 % (0.0-10.0); %Lymphocytes 17.5 % (21.0-51.0); %Monocytes 10.4 % (0.0-10.0); Hemoglobin 15.1 g/dL (12.0-16.0); Mean Corpuscular HGB CONC 32.7 g/dL (32.0-36.0); Mean Corpuscular Hemoglobin 27.2 pg (27.0-31.0); Mean Corpuscular Volume 83.4 fL (78.0-98.0); Mean Platelet Volume 7.2 fL (7.4-10.4); Platelet Count 369 thou/uL (130-400); RBC Distribution Width 12.5 % (11.5-14.5); Red Blood Cell (RBC) Count 5.53 mill/uL (4.20-5.40); White Blood Cell (WBC) Count 12.3 thou/uL (4.8-10.8)
[2018-03-14 16:27] LABS: ALT (SGPT) 22 U/L (8-55); AST (SGOT) 22 U/L (5-34); Albumin 4.5 g/dL (3.5-5.0); Alkaline Phosphatase 76 U/L (40-150); Anion Gap 16 mmol/L (10-20); BUN (Urea Nitrogen) 6 mg/dL (7.0-18.7); Bilirubin, Total 0.8 mg/dL (0.2-1.2); Calc. Creatinine Clearance 0 mL/min (70-130); Calcium 9.5 mg/dL (7.8-10.44); Carbon Dioxide 22 mmol/L (22-29); Chloride 106 mmol/L (98-107); Estimated GFR-MDRD 81; Globulin 3.4 g/dL (2.4-3.5); Glucose 89 mg/dL (70-105); Potassium 4.1 mmol/L (3.5-5.1); Protein, Total 7.9 g/dL (6.0-8.3); Sodium 140 mmol/L (136-145)
[2018-03-14 16:34] LABS: Amphetamine Not Detected (NotDetected); Barbiturates Screen Not Detected (NotDetected); Benzodiazepine Screen Detected (NotDetected); Cocaine Metabolite Screen Not Detected (NotDetected); Medtox Control Line Valid? VALID (VALID); Methadone Not Detected (NotDetected); Methamphetamine Not Detected (NotDetected); Opiate Screen Not Detected (NotDetected); Oxycodone Screen Not Detected (NotDetected); Phencyclidine (PCP) Not Detected (NotDetected); THC/Cannabinoid Screen Not Detected (NotDetected); Tricyclic Screen Not Detected (NotDetected)
== END 2018-03-14 18:20 | disposition home or self-care (01) ==
LOC: MADERS 14:54
DX: R42 Dizziness and giddiness (principal); R51 Headache; F41.9 Anxiety disorder, unspecified; F31.9 Bipolar disorder, unspecified; K58.9 Irritable bowel syndrome, unspecified; M10.9 Gout, unspecified; J45.909 Unspecified asthma, uncomplicated; Z87.442 Personal history of urinary calculi; Z79.899 Other long term (current) drug therapy
CPT/HCPCS: 36415; 70450; 80053; 80306; 81003; 85025; 96361; 96374; 96376; J3010; J7050

== ENCOUNTER 2018-03-16 12:28 | Outpatient (CLI) | payer OTHER | END 2018-03-16 12:29 | disposition home or self-care (01) | LOC: MADRAD 12:28 | PROVIDERS: ATTEND Family Medicine | DX: R00.2 Palpitations (principal); R07.9 Chest pain, unspecified | CPT/HCPCS: 93005; 93010 ==

== ENCOUNTER 2018-03-25 10:32 | Emergency (ER) | payer OTHER ==
[2018-03-25 11:17] LABS: #Basophils 0.1 thou/uL (0.0-0.2); #Eosinphils 0.3 thou/uL (0.0-0.7); #Neutrophils 6.4 thou/uL (1.40-6.50); %Basophils 0.9 % (0.0-1.0); %Eosinophils 3.2 % (0.0-10.0); %Lymphocytes 20.4 % (21.0-51.0); %Monocytes 10.2 % (0.0-10.0); %Neutrophils 65.3 % (42.0-75.0); Hemoglobin 16.6 g/dL (12.0-16.0); Mean Corpuscular HGB CONC 33.7 g/dL (32.0-36.0); Mean Corpuscular Hemoglobin 27.7 pg (27.0-31.0); Mean Platelet Volume 7.4 fL (7.4-10.4); Platelet Count 441 thou/uL (130-400); RBC Distribution Width 11.7 % (11.5-14.5); Red Blood Cell (RBC) Count 6.02 mill/uL (4.20-5.40); White Blood Cell (WBC) Count 9.8 thou/uL (4.8-10.8)
[2018-03-25 11:33] LABS: ALT (SGPT) 66 U/L (8-55); AST (SGOT) 50 U/L (5-34); Albumin 4.8 g/dL (3.5-5.0); Alkaline Phosphatase 88 U/L (40-150); Anion Gap 16 mmol/L (10-20); BUN (Urea Nitrogen) 8 mg/dL (7.0-18.7); Bilirubin, Total 0.9 mg/dL (0.2-1.2); Calc. Creatinine Clearance 0 mL/min (70-130); Calcium 9.4 mg/dL (7.8-10.44); Carbon Dioxide 29 mmol/L (22-29); Chloride 97 mmol/L (98-107); Estimated GFR-MDRD 75; Globulin 3.8 g/dL (2.4-3.5); Glucose 117 mg/dL (70-105); Phosphorus 3.6 mg/dL (2.3-4.7); Potassium 3.1 mmol/L (3.5-5.1); Protein, Total 8.6 g/dL (6.0-8.3); Sodium 139 mmol/L (136-145)
[2018-03-25] MEDS ORDERED: Promethazine 25 MG TAB ONE (12:07)
[2018-03-25] MEDS ORDERED: Potassium Chloride 20 MEQ TAB ONE (12:07)
== END 2018-03-25 12:23 | disposition home or self-care (01) ==
LOC: MADERS 10:32
DX: E87.6 Hypokalemia (principal); M10.9 Gout, unspecified; J45.909 Unspecified asthma, uncomplicated; F41.9 Anxiety disorder, unspecified; F31.9 Bipolar disorder, unspecified; F43.10 Post-traumatic stress disorder, unspecified; Z79.899 Other long term (current) drug therapy
CPT/HCPCS: 36415; 80053; 83735; 84100; 85025; 93005

== ENCOUNTER 2018-08-01 10:49 | Emergency (ER) | payer OTHER ==
--- NOTE | 2018-08-01 13:25 | CT ---
CT LUMBAR SPINE: Multiple axial tomograms were obtained through the lumbar spine with multiplanar reconstruction. INDICATION: Injury to low back. FINDINGS: The lumbar vertebrae maintain normal height and alignment. There is no evidence of compression fract ure. There is no evidence of spondylysis or spondylolisthesis. No evidence of vertebral body fractu re or posterior element fracture. No evidence of disk protrusion. IMPRESSION: Unremarkable CT lumbar spine. POS: [facility]
== END 2018-08-01 12:23 | disposition home or self-care (01) ==
LOC: MADERS 10:49
DX: S70.01XA Contusion of right hip, initial encounter (principal); S39.012A Strain of muscle, fascia and tendon of lower back, initial encounter; J45.909 Unspecified asthma, uncomplicated; N18.2 Chronic kidney disease, stage 2 (mild); K58.9 Irritable bowel syndrome, unspecified; F31.9 Bipolar disorder, unspecified; F41.9 Anxiety disorder, unspecified; Z87.442 Personal history of urinary calculi; W01.0XXA Fall on same level from slipping, tripping and stumbling without subsequent striking against object, initial encounter
CPT/HCPCS: 72131

== ENCOUNTER 2018-08-20 07:42 | Emergency (ER) | payer OTHER ==
[2018-08-20] MEDS ORDERED: Ibuprofen 800 MG TAB ONE (08:42)
== END 2018-08-20 08:44 | disposition home or self-care (01) ==
LOC: MADERS 07:42
DX: H60.8X2 Other otitis externa, left ear (principal); K58.9 Irritable bowel syndrome, unspecified; J45.909 Unspecified asthma, uncomplicated; M10.9 Gout, unspecified; N18.2 Chronic kidney disease, stage 2 (mild); F31.9 Bipolar disorder, unspecified; F41.9 Anxiety disorder, unspecified
CPT/HCPCS: 99282

== ENCOUNTER 2018-08-28 17:18 | Emergency (ER) | payer OTHER ==
[2018-08-28] MEDS ORDERED: Acetaminophen/Codeine 30-300mg Tablet ONE (18:08)
--- NOTE | 2018-08-28 18:08 | RAD ---
PELVIS ONE VIEW: 08/28/18 HISTORY: Injury. COMPARISON: None. FINDINGS: The SI joints are unremarkable. Pubic symphysis are unremarkable. Hips are unremarkable. No acute fra cture or malalignment. There appear to be fallopian tube closure devices projecting over the pelvis, a total of three. IMPRESSION: No acute abnormality. POS: [facility]
--- NOTE | 2018-08-28 18:15 | RAD ---
RIGHT HIP TWO VIEW 08/28/18 HISTORY: Injury. COMPARISON: Radiograph 07/28/17. FINDINGS: No fracture. No malalignment. Obturator ring is intact. IMPRESSION: No acute abnormality. POS: [facility]
== END 2018-08-28 19:05 | disposition home or self-care (01) ==
LOC: MADERS 17:18
DX: S70.01XA Contusion of right hip, initial encounter (principal); M10.9 Gout, unspecified; J45.909 Unspecified asthma, uncomplicated; F41.9 Anxiety disorder, unspecified; F31.9 Bipolar disorder, unspecified; F43.10 Post-traumatic stress disorder, unspecified; Z79.899 Other long term (current) drug therapy; W19.XXXA Unspecified fall, initial encounter
CPT/HCPCS: 72170

== ENCOUNTER 2018-08-29 23:14 | Emergency (ER) | payer OTHER ==
[2018-08-29] MEDS ORDERED: Dexamethasone 10 MG/ML VIAL ONE (23:49)
== END 2018-08-30 00:18 | disposition home or self-care (01) ==
LOC: MADERS 23:14
DX: S39.92XA Unspecified injury of lower back, initial encounter (principal); G57.01 Lesion of sciatic nerve, right lower limb; G62.9 Polyneuropathy, unspecified; N18.2 Chronic kidney disease, stage 2 (mild); K58.9 Irritable bowel syndrome, unspecified; F41.9 Anxiety disorder, unspecified; F31.9 Bipolar disorder, unspecified; M10.9 Gout, unspecified; J45.909 Unspecified asthma, uncomplicated; Z87.442 Personal history of urinary calculi; Z79.891 Long term (current) use of opiate analgesic; Z79.899 Other long term (current) drug therapy; W19.XXXA Unspecified fall, initial encounter
CPT/HCPCS: 96372; J1100

== ENCOUNTER 2018-12-07 21:04 | Emergency (ER) | payer OTHER ==
[2018-12-07] MEDS ORDERED: Sodium Chloride 0.9% 1,000 ML ONE (21:22)
[2018-12-07] MEDS ORDERED: Promethazine HCl 25 MG/ML VIAL ONE (21:22)
[2018-12-07 22:32] LABS: ALT (SGPT) 29 U/L (8-55); AST (SGOT) 24 U/L (5-34); Albumin 4.1 g/dL (3.5-5.0); Alkaline Phosphatase 50 U/L (40-150); Anion Gap 14 mmol/L (10-20); BUN (Urea Nitrogen) 8 mg/dL (7.0-18.7); Bilirubin, Total 0.5 mg/dL (0.2-1.2); Calc. Creatinine Clearance 0 mL/min (70-130); Calcium 8.7 mg/dL (7.8-10.44); Carbon Dioxide 26 mmol/L (22-29); Chloride 104 mmol/L (98-107); Estimated GFR-MDRD 85; Globulin 2.4 g/dL (2.4-3.5); Glucose 78 mg/dL (70-105); Lipase 15 U/L (8-78); Potassium 3.4 mmol/L (3.5-5.1); Protein, Total 6.5 g/dL (6.0-8.3); Sodium 141 mmol/L (136-145)
[2018-12-07 22:37] LABS: Bilirubin Moderate (Negative); Blood, Urine Negative (Negative); Glucose, Urine (Dipstick) Negative (Negative); Leukocyte Negative (Negative); Nitrite Negative (Negative); Protein, Urine (Dipstick) Trace mg/dL (Neg-Trace); Specific Gravity, Urine 1.025 (1.005-1.030); Urobilinogen 0.2 mg/dL (0.2-1.0); pH, Urine 5.5 (5.0-9.0)
[2018-12-07 22:38] LABS: Clarity Hazy (Clear)
[2018-12-07 22:38] LABS: #Basophils 0.1 thou/uL (0.0-0.2); #Eosinphils 0.2 thou/uL (0.0-0.7); #Lymphocytes 1.8 thou/uL (1.20-3.40); #Monocytes 1.2 thou/uL (0.11-0.59); #Neutrophils 4.9 thou/uL (1.40-6.50); %Basophils 1.1 % (0.0-1.0); %Eosinophils 2.7 % (0.0-10.0); %Lymphocytes 21.5 % (21.0-51.0); %Monocytes 14.6 % (0.0-10.0); %Neutrophils 60.1 % (42.0-75.0); Hemoglobin 13.1 g/dL (12.0-16.0); Mean Corpuscular HGB CONC 32.4 g/dL (32.0-36.0); Mean Corpuscular Hemoglobin 28.3 pg (27.0-31.0); Mean Corpuscular Volume 87.4 fL (78.0-98.0); Mean Platelet Volume 6.7 fL (7.4-10.4); Platelet Count 288 thou/uL (130-400); RBC Distribution Width 12.2 % (11.5-14.5); Red Blood Cell (RBC) Count 4.63 mill/uL (4.20-5.40); White Blood Cell (WBC) Count 8.1 thou/uL (4.8-10.8)
[2018-12-07 22:39] LABS: Pregnancy Test - Urine (BHCG) Negative (Negative); Pregu Control Background? CLEAR/WHITE (CLR/WHITE); Pregu Control Bar Appear? YES (CONTROL BAR); Specific Gravity 1.025 (1.002-1.036)
--- NOTE | 2018-12-08 00:41 | CT ---
Noncontrast enhanced images of abdomen and pelvis. HISTORY: Renal calculi. Noncontrast enhanced CT images of the abdomen pelvis demonstrate the lung bases to be unremarkable. No evidence of free intraperitoneal air seen. The liver and spleen are unremarkable. The gallbladder is been surgically removed. The pancreas is unremarkable. Adrenal glands unremarkable. Both kidneys contain small nonobstructing upper pole renal calculi. Some atrophy is seen in some port ions of the upper pole of the left kidney. No evidence of obstructing ureteral calculi seen. No evidence of periaortic lymphadenopathy seen. Intrapelvic surgical clips seen. IMPRESSION: No evidence of obstructing renal calculi.
== END 2018-12-07 23:20 | disposition home or self-care (01) ==
LOC: MADERS 21:04
DX: R10.9 Unspecified abdominal pain (principal); F41.9 Anxiety disorder, unspecified
CPT/HCPCS: 36415; 74176; 80053; 81003; 81025; 83690; 85025; 96374; J2550; J7050

== ENCOUNTER 2018-12-15 12:00 | Outpatient (CLI) | payer OTHER ==
--- NOTE | 2018-12-15 14:13 | ULT ---
Pelvic ultrasound: 12/15/2018 HISTORY: Pelvic pain TECHNIQUE: Multiplanar grayscale sonographic imaging of the pelvis obtained with endovaginal imaging. Ovaries are assessed with color flow and spectral analysis. FINDINGS: No free fluid is seen in the pelvis. The uterus is surgically absent. Both ovaries demonstrate normal blood flow. Right ovary measures 2.6 x 2.1 x 2.1 cm and contains a 1.4 cm cyst/dominant follicle. Left ovary measures 2.2 x 1.5 x 1.4 cm. No ovarian/adnexal mass on the left. IMPRESSION: No acute findings.
== END 2018-12-15 12:01 | disposition home or self-care (01) ==
LOC: MADRAD 12:00 → MADULT 12:01
PROVIDERS: ATTEND Family Medicine
DX: R10.2 Pelvic and perineal pain (principal)

== ENCOUNTER 2019-03-15 10:44 | Outpatient (CLI) | payer OTHER ==
--- NOTE | 2019-03-15 11:49 | RAD ---
RIGHT KNEE 4 VIEWS: HISTORY: Knee pain status post fall. FINDINGS: There are no signs of fracture, dislocation, or joint effusion. No other significant findings. IMPRESSION: Unremarkable right knee. POS: [facility] [place]
--- NOTE | 2019-03-15 12:14 | RAD ---
RIGHT ANKLE 3 VIEWS: Date: 03/15/19 HISTORY: Ankle pain, status post fall. FINDINGS: There are no signs of fracture, dislocation, or joint effusion. A small bony density adjacent to the tip of the fibula was present on the previous exam and probably represents a small accessory ossicle. IMPRESSION: No acute changes. Stable exam. POS: [facility]
== END 2019-03-15 10:45 | disposition home or self-care (01) ==
LOC: MADRAD 10:44
PROVIDERS: ATTEND Family Medicine
DX: M25.561 Pain in right knee (principal); M25.571 Pain in right ankle and joints of right foot

== ENCOUNTER 2019-04-14 01:58 | Emergency (ER) | payer OTHER ==
[2019-04-14] MEDS ORDERED: Sodium Chloride 0.9% 1,000 ML ONE ×2 (02:21→03:56)
[2019-04-14 03:30] LABS: #Basophils 0.2 thou/uL (0.0-0.2); #Eosinphils 0.3 thou/uL (0.0-0.7); #Lymphocytes 3.1 thou/uL (1.20-3.40); #Monocytes 1.8 thou/uL (0.11-0.59); #Neutrophils 8.7 thou/uL (1.40-6.50); %Basophils 1.6 % (0.0-1.0); %Lymphocytes 21.9 % (21.0-51.0); %Monocytes 12.5 % (0.0-10.0); Hemoglobin 14.8 g/dL (12.0-16.0); Mean Corpuscular HGB CONC 33.2 g/dL (32.0-36.0); Mean Corpuscular Hemoglobin 29.1 pg (27.0-31.0); Mean Corpuscular Volume 87.9 fL (78.0-98.0); Mean Platelet Volume 6.6 fL (7.4-10.4); Platelet Count 353 thou/uL (130-400); Red Blood Cell (RBC) Count 5.08 mill/uL (4.20-5.40); White Blood Cell (WBC) Count 14.1 thou/uL (4.8-10.8)
[2019-04-14 03:41] LABS: ALT (SGPT) 24 U/L (8-55); AST (SGOT) 26 U/L (5-34); Albumin 4.6 g/dL (3.5-5.0); Alkaline Phosphatase 64 U/L (40-110); Anion Gap 20 mmol/L (10-20); Bilirubin, Total 0.6 mg/dL (0.2-1.2); Calc. Creatinine Clearance 0 mL/min (70-130); Calcium 8.5 mg/dL (7.8-10.44); Carbon Dioxide 25 mmol/L (22-29); Chloride 98 mmol/L (98-107); Estimated GFR-MDRD 71; Globulin 3.5 g/dL (2.4-3.5); Glucose 99 mg/dL (70-105); Lipase 16 U/L (8-78); Potassium 3.3 mmol/L (3.5-5.1); Protein, Total 8.1 g/dL (6.0-8.3); Sodium 140 mmol/L (136-145)
[2019-04-14 03:45] LABS: BHCG - Serum Negative (NEGATIVE); Pregs Control Background? CLEAR/WHITE (CLR/WHITE); Pregs Control Bar Appear? YES (CONTROL BAR)
[2019-04-14 03:53] LABS: BUN (Urea Nitrogen) 11 mg/dL (7.0-18.7)
[2019-04-14] MEDS ORDERED: Loperamide HCl 2 MG CAP ONE (03:56)
[2019-04-14] MEDS ORDERED: Metoclopramide HCl 10 MG/2 ML VIAL ONE (03:56)
== END 2019-04-14 05:35 | disposition home or self-care (01) ==
LOC: MADERS 01:58
DX: E86.0 Dehydration (principal); E87.6 Hypokalemia; R11.2 Nausea with vomiting, unspecified; R19.7 Diarrhea, unspecified; G43.909 Migraine, unspecified, not intractable, without status migrainosus; J45.909 Unspecified asthma, uncomplicated; M10.9 Gout, unspecified; N18.2 Chronic kidney disease, stage 2 (mild); F41.9 Anxiety disorder, unspecified; F31.9 Bipolar disorder, unspecified; F43.10 Post-traumatic stress disorder, unspecified; Z79.899 Other long term (current) drug therapy
CPT/HCPCS: 80053; 83690; 84703; 85025; 96361; 96374; J2765; J7050

== ENCOUNTER 2019-05-14 22:31 | Emergency (ER) | payer OTHER ==
--- NOTE | 2019-05-14 23:01 | RAD ---
Exam: 2 view soft tissue neck HISTORY: Swallowed foreign body FINDINGS: On the AP projection, no radiopaque foreign body. No malalignment On the lateral projection, predental space is normal No prevertebral soft tissue swelling. No radiopaque foreign body. Epiglottis has a normal caliber. IMPRESSION: No radiopaque foreign body. Direct visualization is recommended. Transcribed Date/Time: 05/14/2019 11:12 PM
== END 2019-05-14 23:07 | disposition home or self-care (01) ==
LOC: MADERS 22:31
DX: T18.9XXA Foreign body of alimentary tract, part unspecified, initial encounter (principal); M10.9 Gout, unspecified; G43.909 Migraine, unspecified, not intractable, without status migrainosus; J45.909 Unspecified asthma, uncomplicated; F43.10 Post-traumatic stress disorder, unspecified; Z79.899 Other long term (current) drug therapy
CPT/HCPCS: 70360

== ENCOUNTER 2019-06-09 14:11 | Emergency (ER) | payer OTHER ==
[~2019-06-09 14:11] MED LIST changes: +Iopamidol 370 76% 200 ML VIAL ONE; -Sodium Chloride 0.9% 1,000 ML BAG ONE; +Sodium Chloride 0.9% 100 ML BAG ONE
[2019-06-09] MEDS ORDERED: Sodium Chloride 0.9% 1,000 ML ONE (14:35)
[2019-06-09] MEDS ORDERED: Aspirin Chewable 81 MG TAB ONE (14:35)
[2019-06-09 14:51] LABS: #Basophils 0.2 thou/uL (0.0-0.2); #Eosinphils 0.5 thou/uL (0.0-0.7); #Lymphocytes 2.8 thou/uL (1.20-3.40); #Monocytes 1.5 thou/uL (0.11-0.59); #Neutrophils 8.9 thou/uL (1.40-6.50); %Basophils 1.4 % (0.0-1.0); %Eosinophils 3.3 % (0.0-10.0); %Lymphocytes 20.2 % (21.0-51.0); %Neutrophils 64.1 % (42.0-75.0); Hemoglobin 14.1 g/dL (12.0-16.0); Mean Corpuscular HGB CONC 31.3 g/dL (32.0-36.0); Mean Corpuscular Volume 92.8 fL (78.0-98.0); Mean Platelet Volume 7.4 fL (7.4-10.4); Platelet Count 340 thou/uL (130-400); Red Blood Cell (RBC) Count 4.86 mill/uL (4.20-5.40); White Blood Cell (WBC) Count 13.8 thou/uL (4.8-10.8)
[2019-06-09 14:53] LABS: ALT (SGPT) 45 U/L (8-55); AST (SGOT) 36 U/L (5-34); Albumin 4.3 g/dL (3.5-5.0); Alkaline Phosphatase 60 U/L (40-110); Anion Gap 16 mmol/L (10-20); BUN (Urea Nitrogen) 10 mg/dL (7.0-18.7); Bilirubin, Total 0.5 mg/dL (0.2-1.2); Calc. Creatinine Clearance 0 mL/min (70-130); Calcium 9.5 mg/dL (7.8-10.44); Carbon Dioxide 21 mmol/L (22-29); Chloride 106 mmol/L (98-107); Estimated GFR-MDRD 79; Globulin 3.1 g/dL (2.4-3.5); Glucose 115 mg/dL (70-105); Protein, Total 7.4 g/dL (6.0-8.3); Sodium 139 mmol/L (136-145)
--- NOTE | 2019-06-09 15:58 | RAD ---
Exam: Chest 2 views HISTORY:Chest pain Comparison: None FINDINGS: Lungs: No masses or consolidation. Cardiac silhouette: Normal size Pulmonary vessels: Normal Pleural Spaces: Clear Pneumothorax: None Osseous abnormalities: None of acuity. IMPRESSION: No focal consolidation.
[2019-06-09] MEDS ORDERED: ALPRAZolam 0.5 MG TAB ONE (16:46)
[2019-06-09 17:53] LABS: Troponin I Less than 0.010 ng/mL (< 0.028)
[2019-06-09 18:12] LABS: Amphetamine Not Detected (NotDetected); Barbiturates Screen Not Detected (NotDetected); Benzodiazepine Screen Not Detected (NotDetected); Cocaine Metabolite Screen Not Detected (NotDetected); Medtox Control Line Valid? VALID (VALID); Methadone Not Detected (NotDetected); Methamphetamine Not Detected (NotDetected); Opiate Screen Not Detected (NotDetected); Oxycodone Screen Not Detected (NotDetected); Phencyclidine (PCP) Not Detected (NotDetected); THC/Cannabinoid Screen Not Detected (NotDetected); Tricyclic Screen Detected (NotDetected)
--- NOTE | 2019-06-09 19:26 | CT ---
CT ANGIOGRAM OF CHEST: 06/09/19 COMPARISON: 03/17/18. HISTORY: Dyspnea and tachycardia, assess for pulmonary arterial embolism. TECHNIQUE: Axial CT imaging at 2.5 mm intervals through the chest with IV contrast using CT angiogram protocol. Coronal and sagittal 3D reformatted imaging obtained. FINDINGS: The imaged upper abdomen demonstrates hypodensity within the hepatic parenchyma which may signify claude atosis. Cholecystectomy clips are present. There are multiple focal areas of cortical thinning involv ing the upper pole of the bilateral kidneys consistent with bilateral upper pole renal cortical scar. No pleural, pericardial, or mediastinal fluid. No axillary, hilar, or mediastinal lymphadenopathy is noted. Imaged aorta demonstrates no evidence for aneurysm or dissection. No filling defect is seen within the pulmonary arterial trunk or main pulmonary artery on either side to suggest the presence of a central pulmonary arterial embolism. Motion artifact slightly limits de tailed assessment of distal lobar segmental and subsegmental pulmonary arterial branches bilaterally. No pneumothorax is evident on either side. No focal pulmonary parenchymal abnormality noted on either side. No discrete endobronchial lesion is noted. No acute osseous abnormality. IMPRESSION: No evidence for acute pulmonary arterial embolism. POS: [facility]
[2019-06-09] MEDS ORDERED: Nitroglycerin 2% Ointment 1 INCH/1 GM Packet ONE (19:35)
== END 2019-06-09 21:13 | disposition short-term general hospital (02) ==
LOC: MADERS 14:11
DX: R00.0 Tachycardia, unspecified (principal); R07.2 Precordial pain; J45.909 Unspecified asthma, uncomplicated; F31.9 Bipolar disorder, unspecified; Z79.899 Other long term (current) drug therapy
CPT/HCPCS: 36415; 71046; 71275; 80053; 80306; 83880; 84443; 84484; 85025; 85379; 96360; J3490; J7050

== ENCOUNTER 2019-07-30 17:03 | Emergency (ER) | payer OTHER ==
--- NOTE | 2019-07-30 17:55 | RAD ---
LEFT ANKLE THREE VIEW: 07/30/19 HISTORY: Injury and pain. COMPARISON: None. FINDINGS: No acute fracture or malalignment. No osteochondral defect talar dome. Soft tissues are unremarkable. IMPRESSION: No acute osseous abnormality. POS: [facility]
--- NOTE | 2019-07-30 17:56 | RAD ---
LEFT FOOT THRE VIEW: 07/30/19 HISTORY: Pain. COMPARISON: None. FINDINGS: No acute fracture or malalignment. The Lisfranc interval appears to be maintained. The soft tissues a re unremarkable. IMPRESSION: No acute osseous abnormality. POS: [facility]
[2019-07-30] MEDS ORDERED: Acetaminophen/Codeine 30-300mg Tablet ONE (18:04)
== END 2019-07-30 18:10 | disposition home or self-care (01) ==
LOC: MADERS 17:03
DX: S86.312A Strain of muscle(s) and tendon(s) of peroneal muscle group at lower leg level, left leg, initial encounter (principal); N18.9 Chronic kidney disease, unspecified; M10.9 Gout, unspecified; G43.909 Migraine, unspecified, not intractable, without status migrainosus; F31.9 Bipolar disorder, unspecified; F41.9 Anxiety disorder, unspecified; Z79.51 Long term (current) use of inhaled steroids; Z79.899 Other long term (current) drug therapy; X50.1XXA Overexertion from prolonged static or awkward postures, initial encounter

== ENCOUNTER 2019-08-03 16:37 | Emergency (ER) | payer OTHER ==
[~2019-08-03 16:37] MED LIST changes: +Iopamidol 370 76% 100 ML VIAL ONE; -Iopamidol 370 76% 200 ML VIAL ONE; -Sodium Chloride 0.9% 100 ML BAG ONE
[2019-08-03] MEDS ORDERED: Nitroglycerin 2% Ointment 1 INCH/1 GM Packet ONE (16:49)
--- NOTE | 2019-08-03 16:59 | RAD ---
EXAM: Single view of the chest HISTORY: Chest pain COMPARISON: 06/29/2018 FINDINGS: Single view of the chest shows a normal sized cardiomediastinal silhouette. There is no bony dence of consolidation, mass, or pleural effusion. The bones are unremarkable. IMPRESSION: No evidence of acute cardiopulmonary disease
[2019-08-03 17:30] LABS: Band 2 % (5-11); Eosinophils 4 % (0-10); Hemoglobin 13.5 g/dL (12.0-16.0); Lymphocytes 33 % (21-51); MDiff Complete? YES; Mean Corpuscular HGB CONC 31.3 g/dL (32.0-36.0); Mean Corpuscular Hemoglobin 29.4 pg (27.0-31.0); Mean Platelet Volume 7.4 fL (7.4-10.4); Monocytes 7 % (0-10); Neutrophil 53 % (42-75); Platelet Count 249 thou/uL (130-400); Platelet Morphology Comment Appears Adequate; RBC Distribution Width 12.4 % (11.5-14.5); RBC Morphology Normal; Red Blood Cell (RBC) Count 4.58 mill/uL (4.20-5.40); White Blood Cell (WBC) Count 7.3 thou/uL (4.8-10.8)
[2019-08-03 17:31] LABS: ALT (SGPT) 57 U/L (8-55); AST (SGOT) 73 U/L (5-34); Albumin 4.2 g/dL (3.5-5.0); Alkaline Phosphatase 72 U/L (40-110); Anion Gap 13 mmol/L (10-20); BUN (Urea Nitrogen) 11 mg/dL (7.0-18.7); Bilirubin, Total 0.6 mg/dL (0.2-1.2); Calc. Creatinine Clearance 0 mL/min (70-130); Carbon Dioxide 25 mmol/L (22-29); Chloride 106 mmol/L (98-107); Estimated GFR-MDRD Greater than 90; Glucose 99 mg/dL (70-105); Magnesium 1.7 mg/dL (1.6-2.6); Potassium 3.9 mmol/L (3.5-5.1); Protein, Total 7.2 g/dL (6.0-8.3); Sodium 140 mmol/L (136-145)
[2019-08-03 17:38] LABS: BHCG - Serum Negative (NEGATIVE); Pregs Control Background? CLEAR/WHITE (CLR/WHITE); Pregs Control Bar Appear? YES (CONTROL BAR)
--- NOTE | 2019-08-03 18:27 | CT ---
CT arteriogram chest with IV contrast and 3-D imaging HISTORY: Tachycardia. Chest pain. COMPARISON: 06/09/2019. FINDINGS: There is good contrast opacification of the pulmonary arteries and thoracic aorta with norm al branching of the great vessels at the aortic arch. Pulmonary vasculature upper limits of normal. Extensive motion artifact. No pleural fluid or pneumothorax. No evidence of mediastinal adenopathy. IMPRESSION: No CT evidence of pulmonary embolus.
[2019-08-03] MEDS ORDERED: Prochlorperazine 10 MG/2 ML VIAL ONE (19:08)
[2019-08-03 19:49] LABS: Amphetamine Not Detected (NotDetected); Barbiturates Screen Not Detected (NotDetected); Benzodiazepine Screen Not Detected (NotDetected); Cocaine Metabolite Screen Not Detected (NotDetected); Methadone Not Detected (NotDetected); Methamphetamine Not Detected (NotDetected); Opiate Screen Detected (NotDetected); Oxycodone Screen Not Detected (NotDetected); Phencyclidine (PCP) Not Detected (NotDetected); THC/Cannabinoid Screen Not Detected (NotDetected); Tricyclic Screen Not Detected (NotDetected)
[2019-08-03 19:50] LABS: Medtox Control Line Valid? VALID (VALID)
== END 2019-08-03 20:00 | disposition left against medical advice (07) ==
LOC: MADERS 16:37
DX: R07.9 Chest pain, unspecified (principal); R00.0 Tachycardia, unspecified; G43.909 Migraine, unspecified, not intractable, without status migrainosus; F41.9 Anxiety disorder, unspecified; F31.9 Bipolar disorder, unspecified; Z79.51 Long term (current) use of inhaled steroids; Z79.891 Long term (current) use of opiate analgesic; Z79.899 Other long term (current) drug therapy
CPT/HCPCS: 71045; 71275; 80053; 80306; 83735; 83880; 84443; 84484; 84703; 85025; 93005; 96374; J0780; Q9967

== ENCOUNTER 2019-10-30 21:07 | Emergency (ER) | payer OTHER ==
[2019-10-30 22:03] LABS: Bilirubin Negative (Negative); Blood, Urine Negative (Negative); Clarity Clear (Clear); Glucose, Urine (Dipstick) Negative (Negative); Leukocyte Negative (Negative); Nitrite Negative (Negative); Protein, Urine (Dipstick) Negative (Neg-Trace); Urobilinogen 0.2 mg/dL (Less than 2)
== END 2019-10-30 22:21 | disposition home or self-care (01) ==
LOC: MADERS 21:07
DX: R33.9 Retention of urine, unspecified (principal); M10.9 Gout, unspecified; F41.9 Anxiety disorder, unspecified; F31.9 Bipolar disorder, unspecified; Z79.899 Other long term (current) drug therapy; N18.9 Chronic kidney disease, unspecified; G43.909 Migraine, unspecified, not intractable, without status migrainosus
CPT/HCPCS: 51701; 81003

== ENCOUNTER 2019-12-06 16:06 | Outpatient (CLI) | payer OTHER ==
--- NOTE | 2019-12-06 16:30 | RAD ---
Lumbar spine 3 views HISTORY: Low back pain. COMPARISON: 07/28/2017. FINDINGS: There are 5 lumbar type vertebrae. Pedicles are intact. Minimal leftward convex curvature on the frontal view is unchanged in appearance. Vertebral body heights and AP alignment are maintained. Metallic clips over the pelvis are again demo nstrated. IMPRESSION : No acute osseous abnormalities are demonstrated.
== END 2019-12-06 16:07 | disposition home or self-care (01) ==
LOC: MADRAD 16:06
PROVIDERS: ATTEND Family Medicine
DX: M54.41 Lumbago with sciatica, right side (principal); M54.42 Lumbago with sciatica, left side
CPT/HCPCS: 72100

== ENCOUNTER 2019-12-29 17:59 | Emergency (ER) | payer OTHER ==
[2019-12-29 18:24] LABS: #Basophils 0.1 thou/uL (0.0-0.2); #Eosinphils 0.3 thou/uL (0.0-0.7); #Lymphocytes 3.3 thou/uL (1.20-3.40); #Monocytes 1.7 thou/uL (0.11-0.59); #Neutrophils 6.5 thou/uL (1.40-6.50); %Eosinophils 2.8 % (0.0-10.0); %Lymphocytes 27.9 % (21.0-51.0); %Monocytes 14.5 % (0.0-10.0); %Neutrophils 53.9 % (42.0-75.0); Hemoglobin 13.2 g/dL (12.0-16.0); Mean Corpuscular HGB CONC 31.2 g/dL (32.0-36.0); Mean Corpuscular Hemoglobin 28.9 pg (27.0-31.0); Mean Corpuscular Volume 92.8 fL (78.0-98.0); Mean Platelet Volume 7.4 fL (7.4-10.4); Platelet Count 349 thou/uL (130-400); RBC Distribution Width 12.5 % (11.5-14.5); Red Blood Cell (RBC) Count 4.56 mill/uL (4.20-5.40)
[2019-12-29 18:32] LABS: BHCG - Serum Negative (NEGATIVE); Pregs Control Background? CLEAR/WHITE (CLR/WHITE); Pregs Control Bar Appear? YES (CONTROL BAR)
[2019-12-29 18:42] LABS: ALT (SGPT) 24 U/L (8-55); AST (SGOT) 21 U/L (5-34); Albumin 4.3 g/dL (3.5-5.0); Alkaline Phosphatase 66 U/L (40-110); Anion Gap 16 mmol/L (10-20); BUN (Urea Nitrogen) 9 mg/dL (7.0-18.7); Bilirubin, Total 0.3 mg/dL (0.2-1.2); CK (CPK) 170 U/L (29-168); Calc. Creatinine Clearance 0 mL/min (70-130); Carbon Dioxide 24 mmol/L (22-29); Chloride 106 mmol/L (98-107); Estimated GFR-MDRD 80; Glucose 84 mg/dL (70-105); Lipase 17 U/L (8-78); Potassium 3.8 mmol/L (3.5-5.1); Protein, Total 7.3 g/dL (6.0-8.3); Sodium 142 mmol/L (136-145)
--- NOTE | 2019-12-29 18:54 | RAD ---
PORTABLE CHEST ONE VIEW: 12/29/19 at 6:44 p.m. HISTORY: Chest pain. COMPARISON: 08/03/19 FINDINGS: The heart size is normal. No focal areas of consolidation, pneumothoraces or pleural effusions are se en. IMPRESSION: No acute process. POS: [facility]
== END 2019-12-29 18:15 | disposition home or self-care (01) ==
LOC: MADERS 17:59
DX: M79.632 Pain in left forearm (principal); Z79.899 Other long term (current) drug therapy
CPT/HCPCS: 71045; 80053; 82550; 83690; 84484; 84703; 85025; 93005

== ENCOUNTER 2020-11-27 10:27 | Outpatient (CLI) | payer OTHER | END 2020-11-27 10:28 | disposition home or self-care (01) | LOC: MADRAD 10:27 | PROVIDERS: ATTEND Family Medicine | DX: M25.561 Pain in right knee (principal); M25.562 Pain in left knee ==

== ENCOUNTER 2021-03-04 16:06 | Emergency (ER) | payer OTHER ==
[2021-03-04] MEDS ORDERED: Morphine 4 MG/ML VIAL ONE (19:48)
[2021-03-04] MEDS ORDERED: Prochlorperazine 10 MG/2 ML VIAL ONE (19:48)
== END 2021-03-04 20:24 | disposition home or self-care (01) ==
LOC: MADERS 16:06
DX: K52.9 Noninfective gastroenteritis and colitis, unspecified (principal); R51.9 Headache, unspecified; J45.909 Unspecified asthma, uncomplicated; N18.2 Chronic kidney disease, stage 2 (mild); K76.0 Fatty (change of) liver, not elsewhere classified
CPT/HCPCS: 96372; 99283; J0780; J2270

== ENCOUNTER 2022-08-14 05:58 | Emergency (ER) | payer BC, OTHER ==
[2022-08-14 07:26] LABS: #Basophils 0.1 thou/uL (0.0-0.2); #Eosinphils 0.4 thou/uL (0.0-0.7); #Lymphocytes 2.1 thou/uL (1.20-3.40); #Monocytes 1.2 thou/uL (0.11-0.59); %Basophils 1.2 % (0.0-1.0); %Eosinophils 3.3 % (0.0-10.0); %Lymphocytes 17.8 % (21.0-51.0); %Monocytes 10.1 % (0.0-10.0); %Neutrophils 67.8 % (42.0-75.0); Hemoglobin 14.3 g/dL (12.0-16.0); Mean Corpuscular HGB CONC 33.3 g/dL (32.0-36.0); Mean Corpuscular Hemoglobin 28.8 pg (27.0-31.0); Mean Corpuscular Volume 86.6 fl (78.0-98.0); Mean Platelet Volume 7.3 fL (7.4-10.4); Platelet Count 349 10x3/uL (130-400); RBC Distribution Width 11.6 % (11.5-14.5); Red Blood Cell (RBC) Count 4.95 mill/uL (4.20-5.40); White Blood Cell (WBC) Count 11.9 10x3/uL (4.8-10.8)
[2022-08-14 07:31] LABS: ALT (SGPT) 35 U/L (8-55); AST (SGOT) 24 U/L (5-34); Alkaline Phosphatase 67 U/L (40-110); Anion Gap 14 mmol/L (10-20); BUN (Urea Nitrogen) 8 mg/dL (7.0-18.7); Bilirubin, Total 1.1 mg/dL (0.2-1.2); Calc. Creatinine Clearance 0 mL/min (70-130); Calcium 8.8 mg/dL (7.8-10.44); Carbon Dioxide 23 mmol/L (22-29); Chloride 107 mmol/L (98-107); Estimated GFR 108; Globulin 2.9 g/dL (2.4-3.5); Glucose 100 mg/dL (70-105); Potassium 3.8 mmol/L (3.5-5.1); Protein, Total 6.9 g/dL (6.0-8.3); Sodium 140 mmol/L (136-145)
== END 2022-08-14 08:11 | disposition home or self-care (01) ==
LOC: MADERS 05:58
DX: S63.8X2A Sprain of other part of left wrist and hand, initial encounter (principal); N18.2 Chronic kidney disease, stage 2 (mild); J45.909 Unspecified asthma, uncomplicated; Z79.899 Other long term (current) drug therapy; X58.XXXA Exposure to other specified factors, initial encounter
CPT/HCPCS: 80053; 85025; 85379; 86140